=== PATIENT | male | born 1965 | race Caucasian/White ===

== ENCOUNTER 2025-03-30 07:56 | Emergency (ER) | payer SELFPAY ==
[~2025-03-30] VITALS: Ht 167.6 cm; Wt 78.0 kg
[2025-03-30 07:59] VITALS: TEMP 36.8; O2SAT 100
[2025-03-30 08:36] LABS: CLARITY URINE TURBID (CLEAR); COLOR URINE YELLOW (YELLOW); GLUCOSE URINE 3+ (NEGATIVE); KETONES URINE 1+ (NEGATIVE); LEUKOCYTE ESTERASE URINE 2+ (NEGATIVE); NITRITE URINE NEGATIVE (NEGATIVE); OCCULT BLOOD URINE 3+ (NEGATIVE); PH URINE 5.5 (4.5-8.0); PROTEIN URINE 1+ (NEGATIVE); SPECIFIC GRAVITY URINE 1.022 (1.005-1.030); UROBILINOGEN URINE 1.0 E.U./dL (0.2-1.0)
[2025-03-30] MEDS ORDERED: CEPH500T MT (08:51)
[2025-03-30] MEDS: CEFTRIAXONE SODIUM 1G VIAL IM ONE (09:00)
[2025-03-30 09:04] LABS: BACTERIA URINE 3+; RBC URINE 0-2 /hpf (0-2); SQUAMOUS EPITHELIAL CELL URINE RARE /lpf (RARE/1+); WBC URINE TNTC /hpf (0-2); YEAST URINE NONE SEEN
[2025-03-30 09:08] VITALS: BP 128/89; PULSE 88; RESP 16; O2SAT 99
== END 2025-03-30 09:10 | disposition home or self-care (01) ==
LOC: ER 07:56
DX: N39.0 Urinary tract infection, site not specified (principal)
CPT/HCPCS: 99283; 81003; 82962; 87086; 87186; 87077; 96372; J0696